=== PATIENT | female | born 1990 | race Caucasian/White ===

== ENCOUNTER 2018-07-14 12:30 | Emergency (ER) | payer SELFPAY ==
[2018-07-14] MEDS: ACET/BUTAL/CAFF TAB PO (15:32)
[2018-07-14] MEDS: METOCLOPRAMIDE 10 MG TAB PO (15:32)
== END 2018-07-14 15:59 | disposition home or self-care (01) ==
LOC: FTE 12:30
DX: G43.909 Migraine, unspecified, not intractable, without status migrainosus (principal); R40.2142 Coma scale, eyes open, spontaneous, at arrival to emergency department; R40.2362 Coma scale, best motor response, obeys commands, at arrival to emergency department; R40.2252 Coma scale, best verbal response, oriented, at arrival to emergency department
CPT/HCPCS: 99283

== ENCOUNTER 2018-08-24 12:29 | Emergency (ER) | payer SELFPAY ==
[2018-08-24] MEDS: LORAZEPAM 1 MG TAB PO (13:13)
== END 2018-08-24 13:45 | disposition home or self-care (01) ==
LOC: FTE 12:29
DX: F41.9 Anxiety disorder, unspecified (principal); Z87.891 Personal history of nicotine dependence
CPT/HCPCS: 99283

== ENCOUNTER 2018-08-25 11:32 | Emergency (ER) | payer SELFPAY ==
[2018-08-25] MEDS: HYDROCODONE/APAP (5/325) TAB PO (11:54)
== END 2018-08-25 12:39 | disposition home or self-care (01) ==
LOC: FTE 11:32
DX: S39.012A Strain of muscle, fascia and tendon of lower back, initial encounter (principal); F17.210 Nicotine dependence, cigarettes, uncomplicated; X50.0XXA Overexertion from strenuous movement or load, initial encounter; Y92.89 Other specified places as the place of occurrence of the external cause
CPT/HCPCS: 99283

== ENCOUNTER 2018-09-28 15:34 | Emergency (ER) | payer MEDICAID ==
[2018-09-28] MEDS: DIPHENHYDRAMINE 50 MG INJ IV ×2 (18:00→18:47)
[2018-09-28] MEDS: PROCHLORPERAZINE 10 MG INJ IV ×2 (18:00→18:47)
[2018-09-28] MEDS: SOD CHLORIDE 0.9% 1,000 ML IV ×2 (18:00→18:46)
[2018-09-28] MEDS: PROCHLORPERAZINE 10 MG TAB PO (19:15)
== END 2018-09-28 19:50 | disposition home or self-care (01) ==
LOC: FTE 15:34
DX: G43.909 Migraine, unspecified, not intractable, without status migrainosus (principal); F17.210 Nicotine dependence, cigarettes, uncomplicated
CPT/HCPCS: 81025; 99283-25

== ENCOUNTER 2019-01-05 09:53 | Emergency (ER) | payer OTHER, MEDICAID ==
[2019-01-05] MEDS: ACETAMINOPHEN 500 MG TAB PO (10:43)
[2019-01-05 10:56] LABS: ADD UMIC NO; UR ASCORBIC ACID NEGATIVE (NEGATIVE); UR BILIRUBIN (Dip) NEGATIVE (NEGATIVE); UR BLOOD (Dip) NEGATIVE (NEGATIVE); UR CLARITY CLEAR (CLEAR); UR COLOR YELLOW (YELLOW); UR GLUCOSE (Dip) NEGATIVE (NEGATIVE); UR KETONES (Dip) NEGATIVE (NEGATIVE); UR LEUKOCYTE ESTERASE (Dip) NEGATIVE Leu/ul (NEGATIVE); UR NITRITE (Dip) NEGATIVE (NEGATIVE); UR SPECIFIC GRAVITY (Dip) 1.021 (1.003-1.030); UR TOTAL PROTEIN (Dip) NEGATIVE (NEGATIVE); UR UROBILINOGEN (Dip) NEGATIVE (NEGATIVE)
[2019-01-05 12:49] LABS: ALANINE AMINOTRANSFERASE 28 IU/L (13-69); ALBUMIN/GLOBULIN RATIO 1.37; ALKALINE PHOSPHATASE 56 IU/L (42-121); ANION GAP 9 (5-13); ASPARTATE AMINO TRANSFERASE 25 IU/L (15-46); BILIRUBIN,INDIRECT 0.4 mg/dl (0-1.1); BILIRUBIN,TOTAL 0.4 mg/dl (0.2-1.3); BLOOD UREA NITROGEN 13 mg/dl (7-20); CALCIUM 9.3 mg/dl (8.4-10.2); CARBON DIOXIDE 29 mmol/L (21-31); CHLORIDE 101 mmol/L (97-110); CREATININE 0.59 mg/dl (0.44-1.00); Estimated GFR > 60 mL/min (>60); GLUCOSE 87 mg/dl (70-220); POTASSIUM 4.3 mmol/L (3.5-5.1); SODIUM 139 mmol/L (135-144); TOTAL PROTEIN 6.9 g/dl (6.1-8.1)
[2019-01-05 13:27] LABS: HIV 1&2 ANTIBODY NEGATIVE (NEGATIVE)
[2019-01-05 13:31] LABS: ADD MAN DIFF? NO
[2019-01-05 13:33] LABS: BASOPHILS % 0.2 % (0.0-2.0); EOSINOPHILS # 0.2 10^3/ul (0.0-0.5); EOSINOPHILS % 2.2 % (0.0-7.0); HEMATOCRIT 34.6 % (37.0-47.0); HEMOGLOBIN 11.8 g/dl (12.0-16.0); LYMPHOCYTES % 34.4 % (15.0-51.0); MEAN CORPUSCULAR HEMOGLOBIN 30.7 pg (29.0-33.0); MEAN CORPUSCULAR HGB CONC 34.1 g/dl (32.0-37.0); MEAN CORPUSCULAR VOLUME 90.1 fl (82.0-101.0); MEAN PLATELET VOLUME 10.4 fl (7.4-10.4); MONOCYTE # 0.5 10^3/ul (0.3-0.9); MONOCYTES % 5.7 % (0.0-11.0); NEUTROPHIL # 4.9 10^3/ul (1.6-7.5); NEUTROPHILS % 57.3 % (39.0-77.0); PLATELET COUNT 217 10^3/UL (140-415); RED BLOOD COUNT 3.84 10^6/ul (4.20-5.40); RED CELL DISTRIBUTION WIDTH 11.9 % (11.5-14.5)
[2019-01-05 13:33] LABS: WHITE BLOOD COUNT 8.6 10^3/ul (4.8-10.8)
[2019-01-05] MEDS: AZITHROMYCIN 500 MG TAB PO (14:09)
[2019-01-05] MEDS: HYDROCODONE/APAP (5/325) TAB PO (14:09)
== END 2019-01-05 14:22 | disposition home or self-care (01) ==
LOC: FTE 09:53
DX: N73.0 Acute parametritis and pelvic cellulitis (principal); Z87.891 Personal history of nicotine dependence
CPT/HCPCS: 76830; 76856; 80053; 81003; 84703; 85025; 86703; 86780; 87210; 87591; 99284-25

== ENCOUNTER 2019-01-16 09:16 | Emergency (ER) | payer OTHER ==
[2019-01-16] MEDS: ONDANSETRON (ODT) 4 MG TAB ODT (10:31)
[2019-01-16 10:35] LABS: URINE BLOOD (Dip) POC Negative (NEGATIVE); URINE GLUCOSE (Dip) POC Negative (NEGATIVE); URINE KETONES (Dip) POC Negative (NEGATIVE); URINE LEUKOCYTE EST (Dip) POC Negative (NEGATIVE); URINE NITRITE (Dip) POC Negative (NEGATIVE); URINE TOTAL PROTEIN POC Trace (NEGATIVE)
[2019-01-16] MEDS: KETOROLAC 30 MG INJ IM (10:38)
== END 2019-01-16 12:11 | disposition home or self-care (01) ==
LOC: FTE 09:16
DX: R10.30 Lower abdominal pain, unspecified (principal); R11.10 Vomiting, unspecified; Z87.891 Personal history of nicotine dependence
CPT/HCPCS: 81003; 81025; 96372; 99284-25